=== PATIENT | male | born 1980 | race African-American/Black ===

== ENCOUNTER 2017-12-14 11:26 | Emergency (ER) | payer MEDICAID, OTHER ==
[~2017-12-14] VITALS: Ht 170.2 cm; Wt 87.1 kg
[~2017-12-14 11:26] MED LIST: AMOXICILLIN500 MG PO; BENTYL10 MG PO; HYDROCHLOROTHIA25 MG ORAL; NKM; NORVIR100 MG ORAL; TRUVADA1 TAB ORAL
[2017-12-14 11:40] VITALS: BP 142/98
--- NOTE | 2017-12-14 13:52 | Emergency Room Report ---
History of Present Illness General Chief Complaint: Upper Respiratory Illness Source: Patient Present Illness HPI Patient with 8 days of URI. Started non-productive, now with copious green phlegm. No chest pain or wheezing. No HAMMOND. No fevers or chills. HIV + and states viral load nil. No calf pain, joint pain, NVD, rashes, hemoptysis, HAMMOND. Allergies: Coded Allergies: No Known Allergies (Unverified , 02/14/12) Patient History Past Medical History: see triage record, HTN, HIV Social History: Denies: smoking Social History Narrative at home Reviewed Nursing Documentation: PMH: Agreed; PSxH: Agreed Nursing Documentation-PMH Past Medical History: No History, Except For Hx Hypertension: Yes Review of Systems All Other Systems: negative except mentioned in HPI Physical Exam Vital Signs Date Time Temp Pulse Resp B/P (MAP) Pulse Ox O2 Delivery O2 Flow Rate FiO2 12/14/17 11:31 98.2 82 16 149/106 96 Room Air 98.2 Sp02 EP Interpretation: reviewed, normal General Appearance: well appearing, no apparent distress, GCS 15 Head: normocephalic, atraumatic Eyes: bilateral eye normal inspection, bilateral eye PERRL ENT: hearing grossly normal, normal pharynx, normal voice, moist mucus membranes Neck: full range of motion, supple Respiratory: chest non-tender, lungs clear, normal breath sounds, no respiratory distress, speaking full sentences Cardiovascular #1: regular rate, rhythm Cardiovascular #2: 2+ radial (R) Gastrointestinal: normal inspection, normal bowel sounds, non tender Genitourinary: no CVA tenderness Musculoskeletal: digits/nails normal, gait/station normal, normal range of motion, no calf tenderness Neurologic: alert, oriented x3, normal gait, grossly normal Psychiatric: mood/affect normal, anxious Skin: no rash Medical Decision Making Diagnostic Impression: Primary Impression: Acute bronchitis Qualified Codes: J20.9 - Acute bronchitis, unspecified Additional Impression: HIV (human immunodeficiency virus infection) ER Course Patient with productive cough for 8 days. DDX; pneumonia, bronchitis, URI, Pneumocystis amongst others. Evaluation with CXR. Elevated risk with h/o HIV though reported good control. Labs not indicated. Not toxic and no resp distress. CXR clear. Patient given symptomatic Rx but requests antibiotics. Patient stable for outpatient observation and treatment. Chest X-Ray Diagnostic Results Chest X-Ray Diagnostic Results : Chest X-Ray Ordered: Yes # of Views/Limited/Complete: 1 View Indication: Other EP Interpretation: Yes Interpretation: no consolidation, no effusion, no pneumothorax Impression: No acute disease Electronically Signed by: Madhu Cohn MD Last Vital Signs Date Time Temp Pulse Resp B/P (MAP) Pulse Ox O2 Delivery O2 Flow Rate FiO2 12/14/17 13:59 98.2 75 16 141/96 96 Room Air 98.2 Status: improved Disposition: HOME, SELF-CARE Condition: Improved Scripts Chlorpheniramine Maleate (CHLOR-TRIMETON) 4 Mg Tablet 4 MG PO Q6HR, #10 TAB Prov: Madhu Cohn M.D. 12/14/17 Guaifenesin/Codeine Phos* (ROBITUSSIN AC*) 118 Ml Liquid 5 ML ORAL Q6H PRN for For Cough, #60 ML 0 Refills Prov: Madhu Cohn M.D. 12/14/17 Referrals: NOT CHOSEN KENDRA/,REFERRING (PCP) Madhu Cohn M.D. Dec 14, 2017 13:51
[2017-12-14] MEDS ORDERED: GUAIFENESIN-CO118 M1 ORAL (13:53)
[2017-12-14] MEDS ORDERED: CHLOR-TRIMETON4 MG PO (13:53)
[2017-12-14 13:59] VITALS: BP 141/96
--- NOTE | 2017-12-15 11:08 | Diagnostic Imaging Report ---
Indication: Cough Comparison: 11/29/2012 A single view chest radiograph was obtained. Findings: Cardiomediastinal appearance is within normal limits for age. The lungs are clear. Pulmonary vascularity is appropriate. The diaphragmatic contour is smooth and costophrenic angles are sharp. No pleural effusions are identified. The bones are unremarkable. Impression: No acute findings
== END 2017-12-14 13:59 | disposition home or self-care (01) ==
LOC: EMR 12:14
DX: J06.9 Acute upper respiratory infection, unspecified (principal); B20 Human immunodeficiency virus [HIV] disease; I10 Essential (primary) hypertension
CPT/HCPCS: 71045; 99283

== ENCOUNTER 2018-04-11 17:46 | Emergency (ER) | payer MEDICAID, OTHER ==
[~2018-04-11] VITALS: Ht 170.2 cm; Wt 86.2 kg
[~2018-04-11 17:46] MED LIST changes: +CHLOR-TRIMETON4 MG PO; +GUAIFENESIN-CO118 M1 ORAL
[2018-04-11 18:03] VITALS: BP 156/109
[2018-04-11] MEDS ORDERED: LOSARTAN POTASS50 MG ORAL (18:07)
[2018-04-11] MEDS ORDERED: HIV meds (18:07)
--- NOTE | 2018-04-11 18:10 | NUR ---
ED Nurse Note: PT WALKED IN TO ER TODAY FROM HOME. AOX4. PT C/O HEADACHE, 10/10 PAIN, AND PRODUCTIVE COUGH X 2 DAYS. PT DENIES FEVER. NO COUGH PRESENT ON ASSESSMENT. LUNG SOUNDS CLEAR IN ALL LOBES. NO SIGNS OF RESPIRATORY DISTRESS OR RETRACTIONS NOTED. RR17 @ 99% O2 SAT.
[2018-04-11] MEDS ORDERED: CLARITIN-D 121 EAC1 ORAL (18:37)
[2018-04-11] MEDS ORDERED: TESSALON PERLE100 MG ORAL (18:37)
[2018-04-11] MEDS ORDERED: BENADRYL25 MG ORAL (18:37)
--- NOTE | 2018-04-11 18:38 | Emergency Room Report ---
History of Present Illness General Chief Complaint: Upper Respiratory Illness Source: Patient (Ki Warren) Present Illness HPI 38-year-old male patient presents the ER complaining of sinus pain and headache for 2 days. Also reports cough with sputum during this time. Denies hemoptysis. Denies shortness of breath or chest pain. Denies history of asthma. Reports history of HIV, states viral load is undetectable and CD4 count is good. Reports frontal headache and pain. Denies history of migraine. Denies vomiting. Denies vision changes. Denies diarrhea or vomiting. Denies fever. States has been taking Mucinex, Tylenol, DayQuil at home for relief of symptoms, states has helped with the being able to sleep however does not completely resolve. (Ki Warren) Allergies: Coded Allergies: No Known Allergies (Unverified , 02/14/12) Patient History Past Medical History: see triage record Reviewed Nursing Documentation: PMH: Agreed; PSxH: Agreed (Ki Warren) Nursing Documentation-PMH Past Medical History: No History, Except For Hx Hypertension: Yes (Ki Warren) Review of Systems All Other Systems: negative except mentioned in HPI (Ki Warren) Physical Exam Vital Signs Date Time Temp Pulse Resp B/P (MAP) Pulse Ox O2 Delivery O2 Flow Rate FiO2 04/11/18 18:03 98.6 98 16 156/109 97 Room Air Sp02 EP Interpretation: reviewed, normal General Appearance: well appearing, no apparent distress, alert, GCS 15, non- toxic Head: normocephalic, atraumatic, other - Frontal and maxillary sinus tenderness to palpation Eyes: bilateral eye normal inspection, bilateral eye PERRL ENT: hearing grossly normal, normal pharynx, no angioedema, normal voice, TMs + canals normal, uvula midline, moist mucus membranes, nasal congestion, other - uvula midline Neck: full range of motion, no meningismus, no bony tend Respiratory: lungs clear, normal breath sounds, no rhonchi, no respiratory distress, no accessory muscle use, no wheezing, speaking full sentences Cardiovascular #1: regular rate, rhythm, no edema Gastrointestinal: non tender, soft, no mass, non-distended, no guarding, no rebound Neurologic: alert, oriented x3, responsive, welfare specialist III-XII nml as tested, motor strength/tone normal, sensory intact, normal gait, speech normal Psychiatric: mood/affect normal Skin: no rash (Ki Warren) Medical Decision Making PA Attestation Dr. Cohn is my supervising Physician whom patient management has been discussed with. (Ki Warren) Diagnostic Impression: Primary Impression: Sinusitis Additional Impression: Upper respiratory infection ER Course Pt presents to ED c/o sinus pain and headache, cough. DDX considered but are not limited to s influenza, viral URI, pneumonia, strep throat, rhinitis, sinusitis, otitis media, migraine, sinus ALBARRAN. VITAL SIGNS are WNL, patient is afebrile. ER COURSE: Exam consistent with viral rhinosinusitis, does not require antibiotics at this time. Lungs clear to auscultation, no wheezes rhonchi rales, patient afebrile, low suspicion for pneumonia, does not require chest x-ray at this time. Provided with Toradol in the ER for pain symptoms. Will provide patient with outpatient treatment. Follow with primary care provider. Discussed referral to specialist. Advised on use of humidifier. Drink plenty of fluids. ER precautions given. Take Tylenol for pain symptoms. DISCHARGE: At this time pt is stable for d/c to home. Patient is resting comfortably, in no acute distress, nontoxic appearing. Patient to take medications as instructed Will provide with patient care instructions and any necessary prescriptions. Care plan and follow-up instructions provided. Patient instructed to follow-up with primary care provider in 3 - 5 days and discuss follow-up with dentist for any tooth pain. Patient questions asked and answered. ER precautions given. Patient instructed to return to ER immediately for any new or worsening of symptoms including but not limited to fever, facial weakness , difficulty speaking, difficulty breathing, difficulty swallowing. - Please note that this Emergency Department Report was dictated using [employer] continuous improvement technology software, occasionally this can lead to erroneous entry secondary to interpretation by the dictation equipment. (Ki Warren) ER Course Patient examined by me and I agree with treatment plan. (Madhu Cohn MD) Last Vital Signs Date Time Temp Pulse Resp B/P (MAP) Pulse Ox O2 Delivery O2 Flow Rate FiO2 04/11/18 18:09 98 16 Room Air 04/11/18 18:03 98.6 156/109 97 Status: improved (Ki Warren) Disposition: HOME, SELF-CARE Condition: Stable Scripts Fluticasone Propionate (Flonase Allergy Relief) 9.9 Ml Wade.susp 1 SPR NS BID for 3 Days, #9.9 ML Prov: Ki Warren 04/11/18 Benzonatate* (TESSALON PERLE*) 100 Mg Capsule 100 MG ORAL THREE TIMES A DAY, #20 PERLE Prov: Ki Warren 04/11/18 Diphenhydramine Hcl* (BENADRYL*) 25 Mg Capsule 25 MG ORAL QHS PRN for Itching, #25 CAP Prov: Ki Warren 04/11/18 Loratadine/Pseudoephedrine (CLARITIN-D 12 HOUR TABLET) 1 Each Tab.er.12h 1 TAB ORAL EVERY 12 HOURS, #24 TAB Prov: Ki Warren 04/11/18 Patient Instructions: Sinusitis, Adult, [id number], Upper Respiratory Infection, Adult Additional Instructions: Followup with primary care provider in 3 -5 days. Use humidifier at home. Take Claritin during the day and Benadryl at night, Benadryl side effect of drowsiness, do not take prior to drinking, driving, operating heavy machinery. Take medications as directed. Patient questions asked and answered. ER precautions given, patient instructed to return to ER immediately for any new or worsening of symptoms. Ki Warren Apr 11, 2018 18:38 Madhu Cohn MD Apr 13, 2018 16:45
[2018-04-11] MEDS ORDERED: FLONASE ALLERG9.9 ML NS (18:42)
[2018-04-11] MEDS ORDERED: Ketorolac 30mg Inj IM ONE (18:45)
[2018-04-11 18:46] VITALS: BP 142/92
--- NOTE | 2018-04-11 18:47 | NUR ---
ED Nurse Note: PT SITTING PEACEFULLY IN CHAIR IN NAD. AOX4. PRESCRIPTIONS AND DISCHARGE PAPERWORK EXPLAINED TO PT. PT VERBALIZES UNDERSTANDING AND ALL QUESTIONS ANSWERED. PRESCRIPTIONS AND DISCHARGE PAPERWORK GIVEN TO PT AND ID WRISTBAND REMOVED. PT WALKED OUT OF ER WITH STEADY GAIT AND ALL BELONGINGS.
== END 2018-04-11 19:00 | disposition home or self-care (01) ==
LOC: EMR 18:55
DX: J32.9 Chronic sinusitis, unspecified (principal); J02.9 Acute pharyngitis, unspecified; I10 Essential (primary) hypertension
CPT/HCPCS: 96372; 99283; J1885

== ENCOUNTER 2018-08-03 22:33 | Emergency (ER) | payer MEDICAID, OTHER ==
[~2018-08-03] VITALS: Ht 170.2 cm; Wt 89.8 kg
[~2018-08-03 22:33] MED LIST changes: +BENADRYL25 MG ORAL; +CLARITIN-D 121 EAC1 ORAL; +FLONASE ALLERG9.9 ML NS; +HIV meds; +LOSARTAN POTASS50 MG ORAL; +TESSALON PERLE100 MG ORAL
[2018-08-03 22:52] VITALS: BP 173/116
--- NOTE | 2018-08-03 22:52 | NUR ---
ED Nurse Note: Patient walked into ED c/o blood in stool that radiates to his back, states that he had anal intercourse 1 day ago, reports his pain a 10/10 pain. patient is alert and oriented x4, ambulatory with a steady gait, VSS
--- NOTE | 2018-08-04 00:40 | Emergency Room Report ---
History of Present Illness General Chief Complaint: Gastrointestinal Bleed Source: Patient Present Illness HPI This is a 38-year-old male who has history of hypertension. He presents with chief made of rectal pain and bleeding. Onset for 2 days now. This occurred after having anal intercourse. He said his partner has a very large penis. Afterward he has some bleeding and pain. Worse with defecation. No fever chills but no nausea no vomiting. Denies any instrumentation or any foreign object. Pain is 10 out of 10. Allergies: Coded Allergies: No Known Allergies (Unverified , 02/14/12) Patient History Past Medical History: see triage record, old chart reviewed, HTN Past Surgical History: none Pertinent Family History: none Social History: Denies: smoking Immunizations: other Reviewed Nursing Documentation: PMH: Agreed; PSxH: Agreed Nursing Documentation-PMH Past Medical History: No History, Except For Hx Hypertension: Yes Review of Systems Eye: Denies: eye pain, blurred vision ENT: Denies: ear pain, nose congestion, throat swelling Respiratory: Denies: cough, shortness of breath Cardiovascular: Denies: chest pain, palpitations Gastrointestinal: Denies: abdominal pain, diarrhea, nausea, vomiting Musculoskeletal: Denies: back pain, joint pain Skin: Denies: rash Neurological: Denies: headache, numbness Endocrine: Denies: increased thirst, increased urine Hematologic/Lymphatic: Denies: easy bruising All Other Systems: negative except mentioned in HPI Physical Exam Vital Signs Date Time Temp Pulse Resp B/P (MAP) Pulse Ox O2 Delivery O2 Flow Rate FiO2 08/03/18 22:44 98.1 96 22 173/116 (135) 97 Room Air Vitals with high blood pressure Sp02 EP Interpretation: reviewed, normal General Appearance: well appearing, no apparent distress, alert Head: normocephalic, atraumatic Eyes: bilateral eye PERRL, bilateral eye EOMI ENT: hearing grossly normal, normal pharynx Neck: full range of motion, supple, no meningismus Respiratory: chest non-tender, lungs clear, normal breath sounds Cardiovascular #1: regular rate, rhythm, no murmur Gastrointestinal: normal bowel sounds, non tender, no mass, no organomegaly, no bruit, non-distended Rectal: other - No external trauma. Digital exam showed lots of pain but no blood. Musculoskeletal: back normal, gait/station normal, normal range of motion Psychiatric: mood/affect normal Skin: warm/dry Medical Decision Making Diagnostic Impression: Primary Impression: Proctitis ER Course This patient presents with rectal pain and bleeding. I see no obvious trauma. KUB did not show any evidence of foreign body. CT scan showed proctitis. No abscess or perforation. Dose of Rocephin given here. Will discharge home with antibiotics. Other X-Ray Diagnostic Results Other X-Ray Diagnostic Results : X-Ray ordered: KUB # of Views/Limited Vs Complete: 1 View Indication: Pain EP Interpretation: Yes Interpretation: no dislocation, no soft tissue swelling, no fractures, nonspecific bowel gas Impression: No acute disease Electronically Signed by: Irwin Clark MD CT/MRI/US Diagnostic Results CT/MRI/US Diagnostic Results : Imaging Test Ordered: CT pelvis Impression Read by radiologist. Proctitis. Last Vital Signs Date Time Temp Pulse Resp B/P (MAP) Pulse Ox O2 Delivery O2 Flow Rate FiO2 08/03/18 22:52 96 22 Room Air 08/03/18 22:52 98.1 173/116 97 Status: improved Disposition: HOME, SELF-CARE Condition: Stable Scripts Ibuprofen* (MOTRIN*) 600 Mg Tablet 600 MG ORAL THREE TIMES A DAY, #30 TAB 0 Refills Prov: Irwin Clark MD 08/04/18 Doxycycline Monohydrate* (DOXYCYCLINE MONOHYDRATE*) 100 Mg Capsule 100 MG ORAL Q12H, #14 CAP 0 Refills Prov: Irwin Clark MD 08/04/18 Referrals: NOT CHOSEN [facility]/,REFERRING (PCP) Additional Instructions: Follow up with your doctor in 7 days for recheck. Return if symptoms worsen. Irwin Clark MD Aug 04, 2018 00:40
[2018-08-04] MEDS ORDERED: Lidocaine 1% MPF 10mg/ml 5ml INJ ONE (01:15)
[2018-08-04] MEDS ORDERED: IBUPROFEN600 MG ORAL (01:19)
[2018-08-04] MEDS ORDERED: DOXYCYCLINE MO100 MG ORAL (01:19)
[2018-08-04 01:28] VITALS: BP 158/82
--- NOTE | 2018-08-04 01:29 | NUR ---
ER DISCHARGE NOTE: Patient is cleared to be discharged per ERMD, pt is aox4, on room air, with stable vital signs. pt was given dc and prescription instructions, pt was able to verbalize understanding, pt id band removed without complications. pt is able to ambulate with steady gait. pt took all belongings.
--- NOTE | 2018-08-04 11:03 | Diagnostic Imaging Report ---
Indication: Pelvic pain Technique: Continuous helical transaxial imaging of the pelvis was obtained from the iliac crest to the pubic symphysis. Coronal 2-D reformats were also obtained. Study obtained in a Siemens sensation [address] Intravenous non-ionic contrast was administered. Total Dose length Product (DLP): 770.[address] Dose Index Volume (CTDIvol): 18.84 mGy Comparison: None Findings: There is a thickening of the wall the rectum with perirectal soft tissue stranding and small nodes in the mesorectal fat. Findings are nonspecific. There is no evidence of a fecal impaction. The appendix is normal. There is no abscess. Bladder is mildly distended. IMPRESSION: Nonspecific proctitis or proctocolitis. No fecal impaction seen at this time. Please correlate clinically. [facility] has communicated the preliminary results to the Emergency Department. Their findings are largely concordant with this report. The CT scanner at [facility] is accredited by the [employer] and the scans are performed using dose optimization techniques as appropriate to a performed exam including Automatic Exposure control.
--- NOTE | 2018-08-04 11:36 | Diagnostic Imaging Report ---
Indication: Abdominal pain Comparison: None Single view of the abdomen obtained Findings: Bowel gas pattern is nonspecific. No mass, ectopic calcifications, or abnormal gas collections are identified. The bones are unremarkable. Impression: No acute findings
== END 2018-08-04 01:29 | disposition home or self-care (01) ==
LOC: EMR 23:22
DX: K62.89 Other specified diseases of anus and rectum (principal); I10 Essential (primary) hypertension
CPT/HCPCS: 72192; 74018; 96372; 96374; 99284; J0696

== ENCOUNTER → 2019-05-21 | Emergency (ER) | payer OTHER ==
[~2019-05-21] MED LIST changes: +DOXYCYCLINE MO100 MG ORAL; +IBUPROFEN600 MG ORAL; +Losartan 25mg tab ONE
--- NOTE | 2019-05-21 06:22 | Emergency Room Report ---
History of Present Illness General Source: Patient Present Illness HPI Patient presents with complaints of cough Reports that the cough started at midnight he has a sensation of shortness of breath as well Denies any vomiting or diarrhea denies any fever denies any chest pain denies any recent travel or contact with Covid patient Patient reports previous history of HIV Denies any abdominal pain or diarrhea denies any rash Allergies: Coded Allergies: No Known Allergies (Unverified , 02/14/12) Patient History Past Medical History: see triage record Reviewed Nursing Documentation: PMH: Agreed; PSxH: Agreed Nursing Documentation-PMH Hx Hypertension: Yes Review of Systems All Other Systems: negative except mentioned in HPI Physical Exam 99% RA Sp02 EP Interpretation: reviewed, normal General Appearance: well appearing, no apparent distress Head: normocephalic, atraumatic Eyes: bilateral eye PERRL, bilateral eye EOMI ENT: hearing grossly normal, normal pharynx, TMs + canals normal, uvula midline Neck: full range of motion, supple, no meningismus, no bony tend Respiratory: lungs clear, normal breath sounds, no rhonchi, no respiratory distress, no retraction, no accessory muscle use Cardiovascular #1: normal peripheral pulses, regular rate, rhythm, no edema, no gallop, no JVD, no murmur Gastrointestinal: normal bowel sounds, non tender, soft, no mass, no organomegaly, non-distended, no guarding, no hernia, no pulsatile mass, no rebound Genitourinary: no CVA tenderness Musculoskeletal: normal inspection Neurologic: motor strength/tone normal, numberer and wirer III-XII nml as tested, oriented x3 , sensory intact, responsive Psychiatric: mood/affect normal Skin: no rash Lymphatic: normal inspection, no adenopathy Medical Decision Making Diagnostic Impression: Primary Impression: Cough Additional Impression: Shortness of breath ER Course Multiple differentials are in consideration including but not limited to cardiac , cardiopulmonary, vascular process Other infectious process such as pneumonia, COVID 19 are in consideration Patient's chest x-ray is normal EKG is normal Patient does not appear in any acute distress respirations are appropriate oxygenation is appropriate patient symptoms Can be consistent with early covid 19 presentation however patient does not meet criteria for further inpatient status or testing according to CDC and public health guidelines Patient requires home quarantine Close evaluation of symptoms such as fever and worsening respirations and patient was instructed to call 911 if symptoms worsen EKG Diagnostic Results Rate: normal Rhythm: NSR ST Segments: no acute changes Rhythm Strip Diag. Results EP Interpretation: yes Rate: 77 Rhythm: NSR, no PVC's, no ectopy Chest X-Ray Diagnostic Results Chest X-Ray Diagnostic Results : Chest X-Ray Ordered: Yes # of Views/Limited/Complete: 1 View Indication: Shortness of Breath EP Interpretation: Yes Interpretation: no consolidation, no effusion, no pneumothorax Impression: No acute disease Electronically Signed by: Kristian Norris DO Status: improved Disposition: HOME, SELF-CARE Condition: Stable Referrals: NOT CHOSEN [facility]/MD,REFERRING (PCP) Additional Instructions: Patient is provided with the discharge instructions notified to follow up with primary doctor in the next 2-3 days otherwise return to the er with any worsening symptoms. Please note that this report is being documented using [employer] technology. This can lead to erroneous entry secondary to incorrect interpretation by the dictating instrument. Kristian Norris DO May 21, 2019 06:22
--- NOTE | 2019-05-21 13:45 | Diagnostic Imaging Report ---
Indication: Chest pain, shortness of breath Technique: XRAY Chest 1v Comparison: 12/14/2017 Findings: Heart size and mediastinal contours are within normal limits for AP technique and stable compared to prior exam. There is no focal airspace consolidation, pneumothorax or pleural effusion. Osseous structures demonstrate no acute abnormality. Impression: No radiographic evidence of acute cardiopulmonary disease.
== END | disposition home or self-care (01) ==
LOC: EMR 05:30
DX: R05 Cough (principal); R06.02 Shortness of breath; I10 Essential (primary) hypertension
CPT/HCPCS: 71045; Z7502; 99283

== ENCOUNTER 2019-11-04 14:14 | Emergency (ER) | payer OTHER ==
[~2019-11-04] VITALS: Ht 170.2 cm; Wt 96.6 kg
[~2019-11-04 14:14] MED LIST changes: -Losartan 25mg tab ONE
[2019-11-04 14:31] VITALS: BP 181/110
[2019-11-04] MEDS ORDERED: PREZCOBIX 8001 EACH PO (14:33)
[2019-11-04] MEDS ORDERED: descovy (14:33)
[2019-11-04] MEDS ORDERED: Gadavist 7.5mMol/7.5ml vial IV PRN ×2 (15:00)
[2019-11-04] MEDS ORDERED: Morphine Sulfate 2mg/ml Inj(IV/IM USE ONLY) IVP ONE (15:00)
--- NOTE | 2019-11-04 15:18 | Emergency Room Report ---
History of Present Illness General Chief Complaint: Hypertension Source: Patient Present Illness HPI 39-year-old -Citizen Of [place] male with past medical history of HIV with undetectable viral load currently on Lawson therapy, hypertension, dyslipidemia sent by his primary care doctor for evaluation of uncontrolled hypertension. Patient states he has been compliant with all of his medications. He states that he is also compliant with following up with infectious disease. He denies any fever, chills, nausea, vomiting, diarrhea. He states that he has L3-L4 lumbar degenerative joint disease, however over the past 2 days has been having worsening midline back pain. Admits to increased urinary frequency but denies urinary retention, urinary incontinence/fecal incontinence, saddle anesthesia. Patient ambulated into the emergency department today unassisted. He denies chest pain, shortness of breath, hemoptysis, lower extremity edema, rash, photophobia, headache or any other symptoms. Denies recent sick contacts, international travel, or recent cardiac evaluation. For his hypertension, he is currently taking losartan 50 mg daily as well as hydrochlorothiazide 25 mg daily. BP prior to arrival was 188/120. The patient's symptoms were gradual onset, severity was moderate, duration since 1 day. Quality: Dizzy Past medical history: HIV, hypertension, dyslipidemia Past surgical history: Denies Smoking: Denies Alcohol use: Denies Drug use: Denies IV drug use Review of systems: CONST: No fevers or chills, No night sweats PULMONARY: No productive cough, No shortness of breath CARDIAC: No chest pain, No palpitations GI: No vomiting, No diarrhea , No melena_or_BRBPR : No dysuria, No hematuria, No discharge NEURO: No new_focal_weakness_or_numbness, No confusion, No vision changes 14 point Review of Systems is otherwise negative except per HPI Physical Exam: GENERAL: Awake_alert_ nontoxic, no acute distress Spo2 98% on RA -normal EYES: Extraocular muscles are intact. Conjunctivae clear. Lids without swelling ENT: External nose and ear normal_in_appearance. Oropharynx clear. Head_ atraumatic, Moist_oral_mucosa NECK: No JVD. No meningismus. No thyromegaly. Supple. Trachea midline RESP: Normal respiratory effort. Symmetric rise. No stridor. Clear_to_ auscultation_No_rales_No_wheezes CARDIAC: Regular rate and regular rhytm. No_significant pedal edema. ABDOMEN: Soft. Nondistended. Nontender_No_rebound_or_guarding. MSK: Normal muscle tone, without rigidity. Extremities without asymmetric deformity or swelling. SKIN: Warm and dry. No visible cyanosis or pallor NEUROLOGIC: Alert, oriented x3. Motor_and_sensation_grossly_intact in the bilateral upper and lower extremity. Sensation is intact to light touch.. No truncal ataxia. Gait_normal Psych: Normal mood and affect, normal judgment and insight - COORDINATION OF CARE Case was discussed with: Patient , Patient's Physician Any labs and imaging that were ordered were interpreted as part of the medical decision making: Medical Decision Making/Plan: Differential diagnosis includes nephrolithiasis, musculoskeletal pain, muscle spasm / sprain, vertebral fracture, spinal epidural abscess, spinal epidural hematoma, pyelonephritis, kidney stone, AAA, among others. Vitals are unremarkable. Patient is afebrile. No focal abnormalities on neurologic exam. On exam, pulses are equal and symmetric bilaterally. No focal neurologic deficits noted. No midline spinal step offs or deformities appreciated. The patient has no significant red flags on history or exam, however has history of immunosuppression with his history of HIV. MRI was obtained because he is stating that he is having increased frequency of urination and his back pain feels "different" MRI of the T/L-spine shows annular ligament tear. No evidence of SEA, conus medullaris, cauda equina ESR and CRP are not elevated. No leukocytosis. Troponin negative. No AUBREE. EKG is NSR without STEMI BP has come down with pain control. Initially Vasotec was ordered, however patient did not need it. I have counseled him to continue to follow-up with his primary care doctor for his chronic management of his hypertension. I also counseled him on life modification including increased exercise and low- salt diet. Patient confirms his understanding. He will follow-up with his HIV specialist as well. Differential for the patients headache includes primary headache (migraine, tension, cluster), DOUBT subarachnoid hemorrhage, intracranial mass / tumor, meningitis, encephalitis, increased intracranial pressure, mastoiditis, acute sinusitis, dural venous thrombosis, temporal arteritis, acute angle closure glaucoma, among others. Headache not sudden and severe, not worst headache of life, no family hx of SAH , neurologically intact without any persistent vomiting. Not consistent with subarachnoid hemorrhage, dural venous thrombosis, increased intracranial pressure, or significant tumor at this time. Patient without meningismus, mastoid / sinus tenderness, altered mental status or seizure. Doubt subdural abscess, meningitis, encephalitis, mastoiditis. No significant trauma mechanism, not anticoagulated. No evidence of subdural / epidural hematoma. [place] CT head criteria negative. No temporal tenderness, jaw claudication or vision loss. Eyes are reactive, with normal appearing anterior chambers. No evidence of temporal arteritis or acute angle closure glaucoma. Given the patients presentation, and normal neurologic exam, advanced imaging of the head with CT was not felt to be necessary or indicated and not pursued after weighing the risks and benefits of radiation. Patient received Toradol, Compazine, Benadryl with full relief of symptoms. 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: No Nursing Documentation-[facility] Past Medical History: No History, Except For Hx Hypertension: Yes Physical Exam Vital Signs Date Time Temp Pulse Resp B/P (MAP) Pulse Ox O2 Delivery O2 Flow Rate FiO2 11/04/19 14:25 98.4 83 18 177/115 (135) 97 Room Air Sp02 EP Interpretation: reviewed, normal Medical Decision Making Diagnostic Impression: Primary Impression: Hypertension Additional Impressions: HIV (human immunodeficiency virus infection) Back pain DJD (degenerative joint disease), lumbosacral Annular tear of lumbar disc EKG Diagnostic Results PA Scribe Text 12-lead EKG (interpreted by me) Time: 1451 Indication: Rhythm analysis Tracing visualized and Interpreted by me. Rhythm: Normal sinus rhythm Rate: 77 bpm QTc: 443 Morphology: No_significant_ST_elevations_or_depressions, No STEMI Impression: Normal_sinus_rhythm_without_significant_abnormality Reevaluation Time: 18:06 Last Vital Signs Date Time Temp Pulse Resp B/P (MAP) Pulse Ox O2 Delivery O2 Flow Rate FiO2 11/04/19 14:25 98.4 83 18 177/115 (135) 97 Room Air Status: improved Disposition: HOME, SELF-CARE Admit Decision Time: 18:06 Scripts Methocarbamol* (ROBAXIN-750*) 750 Mg Tablet 750 MG PO TID, #21 TAB 0 Refills Prov: Art,Nila D.O. 11/04/19 Naproxen* (NAPROXEN*) 500 Mg Tablet.dr 500 MG ORAL TWICE A DAY for 14 Days, #28 TAB Prov: Nila Art D.O. 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 Please exercise and lose weight. Avoid high sodium diet. You are found to have an annular tear in your lumbar spine. You can take Tylenol and Motrin [id number] for this. He will need to seek follow-up and referral to real estate management specialist on an outpatient basis. Take your HIV medications Follow-up with your doctor sooner if your condition requires a more timely clinical reevaluation. Return to the emergency department immediately if you feel that your condition is worsening or if you have any new or concerning symptoms. Review your discharge instructions and take any prescriptions given as instructed. Do not drive or operate heavy machinery while taking Robaxin as it is potentially sedating. Nila Art D.O. Nov 04, 2019 15:18
[2019-11-04 15:26] LABS: BASOPHILS % (AUTO) 1.4 % (0.0-2.0); HEMATOCRIT 48.1 % (42.0-52.0); HEMOGLOBIN 15.9 G/DL (14.2-18.0); LYMPHOCYTES % (AUTO) 34.7 % (20.0-45.0); MEAN CORPUSCULAR VOLUME 94 FL (80-99); MONOCYTES % (AUTO) 7.7 % (1.0-10.0); NEUTROPHILS % (AUTO) 55.2 % (45.0-75.0); PLATELET COUNT 279 K/UL (150-450); RED CELL DISTRIBUTION WIDTH 12.9 % (11.6-14.8); WHITE BLOOD COUNT 7.9 K/UL (4.8-10.8)
[2019-11-04 15:37] LABS: ANION GAP 6 mmol/L (5-15); BLOOD UREA NITROGEN 12 mg/dL (7-18); CALCIUM 9.1 MG/DL (8.5-10.1); CARBON DIOXIDE 30 MMOL/L (21-32); CHLORIDE 104 MMOL/L (98-107); CREATININE 1.3 MG/DL (0.55-1.30); POTASSIUM 3.6 MMOL/L (3.5-5.1); SODIUM 140 MMOL/L (136-145)
[2019-11-04 15:48] LABS: ALANINE AMINOTRANSFERASE 43 U/L (12-78); ALBUMIN 3.9 G/DL (3.4-5.0); ALBUMIN/GLOBULIN RATIO 0.9 (1.0-2.7); ALKALINE PHOSPHATASE 70 U/L (46-116); ASPARTATE AMINO TRANSFERASE 21 U/L (15-37); BILIRUBIN,TOTAL 0.4 MG/DL (0.2-1.0)
--- NOTE | 2019-11-04 15:59 | Diagnostic Imaging Report ---
Indication: Chest pain Technique: One view of the chest Comparison: 05/21/2019 Findings: The heart is upper limits of normal in size. The lungs pleural spaces are clear. There is no significant interim change Impression: No acute process
[2019-11-04] MEDS ORDERED: Enalaprilat 2.5mg/2ml Inj IV ONE (16:00)
--- NOTE | 2019-11-04 17:43 | Diagnostic Imaging Report ---
EXAM: MR Lumbar Spine Without and With Intravenous Contrast CLINICAL HISTORY: BK PAIN TECHNIQUE: Magnetic resonance images of the lumbar spine without and with intravenous contrast in multiple planes. COMPARISON: No previous studies for comparison. FINDINGS: Vertebrae: Alignment of the lumbar spine is within normal limits. Very mild degenerative disc disease at the remaining levels the lumbar spine. Visualized lower thoracic vertebral bodies and the sacrum are unremarkable. No acute fracture. Spinal cord: Unremarkable. Normal signal. No abnormal enhancement. Soft tissues: Paraspinal regional soft tissues are unremarkable. DISCS/SPINAL CANAL/NEURAL FORAMINA: L1-L2: No significant focal abnormalities are noted at the L1-2, L2-3, L3-4, and L5-S1 levels. No stenosis. L2-L3: See above. L3-L4: See above. L4-L5: Moderate degenerative disc disease at the L4-5 level. Broad- based protrusion is noted at the L4-5 level with impression upon the anterior thecal sac but no significant narrowing of neural foramina. Moreover, a 0.3 cm posterior and central subannular tear is noted at the L4-5 level with associated 0.6 x 0.3 x 0.3 cm focal central protrusion with impression upon the thecal sac posteriorly and centrally. Mild acquired spinal stenosis at L4-5 level. L5-S1: Following administration of gadolinium, no areas of abnormal enhancement detected. Mild posterior facet hypertrophy at the L5-S1 level is noted. Other findings: Evaluation of STIR weighted sequences reveals no compression deformities or stress type changes. Spinous processes are unremarkable. IMPRESSION: 1. The dominant finding is at L4-5 level where there is a posterior and central subannular tear with associated focal protrusion. 2. Degenerative disc disease most notable at L4-5 level. 3. No significant enhancement detected following the administration of gadolinium.
--- NOTE | 2019-11-04 17:48 | Diagnostic Imaging Report ---
EXAM: MR Thoracic Spine Without and With Intravenous Contrast CLINICAL HISTORY: Back pain. TECHNIQUE: Magnetic resonance images of the thoracic spine without and with intravenous contrast in multiple planes. COMPARISON: No previous studies. FINDINGS: Vertebrae: Evaluation of STIR weighted sequences reveals no compression deformities or stress type changes throughout the thoracic spine. Transaxial images throughout the thoracic spine reveal no significant focal abnormalities. Discs/spinal canal/neural foramina: Diffuse mild degenerative disc disease throughout the thoracic spine. No intrinsic abnormality of the thoracic segment of the spinal cord is noted. Following the administration of gadolinium, no significant area of abnormal enhancement is detected including the thoracic segment of the spinal cord. No spinal canal stenosis. Spinal cord: See above. Soft tissues: Soft tissues are unremarkable. Paraspinal soft tissues are unremarkable. IMPRESSION: 1. Mild diffuse degenerative disc disease. 2. No significant focal abnormality detected.
[2019-11-04] MEDS ORDERED: Ketorolac 30mg Inj IV ONE (18:00)
[2019-11-04] MEDS ORDERED: DiphenhydrAMINE 50mg/ml Inj IVP ONE (18:00)
[2019-11-04 18:07] VITALS: BP 161/101
[2019-11-04] MEDS ORDERED: ROBAXIN-750750 MG PO (18:08)
[2019-11-04] MEDS ORDERED: NAPROXEN500 M1 ORAL (18:08)
[2019-11-04 18:10] VITALS: BP 161/104
[2019-11-04 18:23] VITALS: BP 148/76
[2019-11-04 18:40] VITALS: BP 144/79
== END 2019-11-04 18:40 | disposition home or self-care (01) ==
LOC: EMR 15:02 → EDBEDREQ 15:11 → CANBEDREQ 18:06 → EMR 18:40
DX: I10 Essential (primary) hypertension (principal); B20 Human immunodeficiency virus [HIV] disease; M51.36 Other intervertebral disc degeneration, lumbar region; M54.89 Other dorsalgia; E78.5 Hyperlipidemia, unspecified; Z79.899 Other long term (current) drug therapy
CPT/HCPCS: 36415; 71045; 72148; 72157; 80053; 83880; 84484; 85025; 85610; 85651; 85730; 86140; 93005; 96374; 96375; A9585; J0780; J1200; J1885; J2270; J2405; U0002; Z7502; 99284